=== PATIENT | male | born 2000 | race Caucasian/White ===

== ENCOUNTER 2021-03-06 22:22 | Emergency (ER) | payer OTHER, SELFPAY ==
[2021-03-06 22:23] VITALS: BP 110/80; PULSE 133; RESP 15; TEMP 36.9; O2SAT 92; BMI 27.1
--- NOTE | 2021-03-06 23:19 | CT_ITS ---
STUDY: CT SOFT TISSUE NECK WITH CONTRAST REASON FOR EXAM: Male, 20 years old. ? Peritonsillar abscess RADIATION DOSAGE (If Supplied By Facility): CTDIvol = ( 15.24 ) mGy, DLP = ( 456.90 ) mGycm TECHNIQUE: The patient was scanned in a multi-detector CT scanner. High resolution transaxial imaging was performed following intravenous administration of IV 100mL Isovue-370. Sagittal and coronal images were reconstructed. Individualized dose optimization techniques were used for this CT. COMPARISON: None. FINDINGS: There is bilateral right greater than left tonsillar enlargement with heterogeneous striated enhancement. No peritonsillar abscess formation visualized. Normal bilateral parotid glands. 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 Normal bilateral parapharyngeal spaces. Normal bilateral carotid spaces. Normal bilateral sublingual and submandibular glands and spaces. Normal visualized nasopharynx. Normal retropharyngeal space. Normal perivertebral space. The visualized tongue, tongue base and oropharynx are normal. The visualized cervical lymph nodes (levels I-) are within normal size limits, and maintain normal morphology. There is no demonstrated solid or cystic mass lesion. There is no abnormal contrast enhancement. Normal epiglottis, bilateral vallecula and hypopharynx. The pre-epiglottic and paraglottic adipose spaces are normal. Normal visualized bilateral piriform sinuses, aryepiglottic folds, vocal cords, and arytenoid-cricoid articulations. Normal subglottic trachea. Normal bilateral lobes of the thyroid gland. Normal visualized pulmonary apices. Normal visualized paranasal sinuses. Normal visualized cervical spine. CT/Soft Tissue Neck WITH Contrast IMPRESSION: Enlarged bilateral tonsils with heterogeneous striated enhancement consistent with tonsillitis. Electronically Signed: Jeffry Fiore MD at 0:16 EST Tel , Service support ,
[2021-03-06] MEDS: 0.9% Normal Saline 1,000 ML 999 ML IV (23:40)
[2021-03-06] MEDS: dexAMETHasone 10 MG/ML Vial IV (23:40)
[2021-03-06] MEDS: Ketorolac 30 MG/ML Syringe IV (23:40)
[2021-03-06 23:51] LABS: Absolute Lymphocyte Count 1.99 X10^3/uL (0.83-4.51); Absolute Neutrophil Count 10.4 X10^3/uL (2.0-7.7); Basophil# 0.03 X10^3/uL; Basophil% 0.2 % (0-1); Eosinophil# 0.05 X10^3/uL; Eosinophils% 0.4 % (0-5); Hematocrit 47.5 % (40-54); Lymphocyte # 1.99 X10^3/ul (0.83-4.51); Lymphocyte % 14.3 % (19-41); Mean Corp Hgb Conc 33.7 g/dL (32-36); Mean Corpuscular Hgb 29.4 pg (27.0-32.0); Mean Corpuscular Volume 87.3 fL (80-94); Mean Platelet Vol. 8.5 fl (6.2-12.0); Monocyte# 1.37 X10^3/uL; Monocyte% 9.8 % (0-10); NRBC Flagged by Analyzer 0 % (0-5); Neutrophil # 10.41 X10^3/uL (2.7-7.7); Neutrophil % 74.8 % (47-70); Platelet Count 230 K/mm3 (150-450); RBC Distribution Width CV 12.1 % (11.6-14.6); RBC Distribution Width SD 38.8 fl (35.1-43.9); Red Blood Count 5.44 M/mm3 (4.6-6.2); White Blood Count 13.9 K/mm3 (4.4-11.0)
[2021-03-07 00:06] LABS: Anion Gap 6 (5-15); BUN 10 mg/dL (7-18); Calcium,Total 9.7 mg/dL (8.5-10.1); Chloride 102 mmol/L (98-107); EST Glomerular Filtration Rate 101 mL/min (>60); Est Glom Filt Rate - Afr Amer 122 mL/min (>60); Estimated Creatinine Clearance 140.83 ml/min; Glucose 100 mg/dL (74-106); Potassium 3.8 mmol/L (3.5-5.1); Sodium Level 133 mmol/L (136-145)
--- NOTE | 2021-03-07 00:38 | EDS_ITS ---
HPI History of Present Illness Chief Complaint: Cough Narrative Narrative: Patient is a 20-year-old male who states he got his COVID-vaccine booster 5 days ago. He states after the booster he then began developing fevers up to 104 at home. He states he has had muscle aches and mild cough associated with this. He reports has been taking Tylenol and Motrin with minimal symptom improvement. He states he went and saw his family doctor who did an outpatient COVID test and influenza swab and did a rapid strep test in office. Reportedly the rapid strep test was negative. Patient states he has been noticing some throat and neck pain this evening and with his progressing symptoms presents for evaluation. [facility] Medical History Asthma Incomplete right bundle branch block Pericarditis Home Medications colchicine 0.6 mg tablet 0.6 mg PO BID tab 02/09/21 [History Last Taken Unknown] ibuprofen 200 mg tablet 200 mg PO TID PRN #30 tab 02/09/21 [Rx Last Taken Unknown] amoxicillin-pot clavulanate 1 tab PO BID 10 Days #20 tab 03/07/21 [Rx Last Taken Unknown] prednisone 40 mg PO DAILY 5 Days #10 tab 03/07/21 [Rx Last Taken Unknown] Allergy/AdvReac Type Severity Reaction Status Date / Time azithromycin [From Zithromax] Allergy Rash Verified 03/06/21 22:23 [email or web address] [From Omnicef] Allergy Hives Verified 03/06/21 22:23 Family History (Updated 02/09/21 @ 14:19 by Binta Lambert) Mother Thyroid disorder Grandmother Heart disease Hypertension COPD (chronic obstructive pulmonary disease) Father Heart disease Hypertension Grandmother No problems noted. Grandfather Hypertension Grandfather Hypertension Social History Smoking Status: Never smoker alcohol intake: never ROS ROS ED Constitutional Constitutional ED: Reports chills and fever(s) ENT ENT ED: Reports sore throat Cardiovascular Cardiovascular: Denies chest pain or palpitations Respiratory/Chest Respiratory/Chest: Reports cough; Denies dyspnea Gastrointestinal Gastrointestinal: Denies abdominal pain, diarrhea, nausea or vomiting Genitourinary Genitourinary ED: Denies dysuria Musculoskeletal Musculoskeletal: Reports myalgias Integumentary Denies rash Neurologic Neurologic: Denies headache(s) Hematologic/Lymphatic Hematologic/Lymphatic: Denies easy bleeding or easy bruising EXAM Physical Exam Const Vital Signs: 03/06/21 22:23 03/06/21 23:43 Temperature 98.5 F Temperature Source Temporal Pulse Rate 133 H Respiratory Rate 15 Respiratory Effort Normal Respiratory Depth Normal Respiratory Pattern Normal Blood Pressure 110/80 Blood Pressure Mean 90 Pulse Ox 92 Oxygen Delivery Method Room Air Positive well nourished and well developed General Appearance ED: well developed HEENT Reports moist mucous membranes HEENT Narrative: There is bilateral enlargement of the tonsils right greater than left. There is loss of the tonsillar crypt on the right. Patient does report mild trismus. However there is no change in voice or difficulty with secretions. No exudates or hard palate petechiae noted. No airway edema or compromise. Eyes PERRL and EOMs intact bilaterally Neck supple Neck Narrative: Positive anterior cervical lymphadenopathy. No meningeal signs Resp normal respiratory effort and clear to auscultation bilaterally Cardio regular rhythm Rate: tachycardic GI normal to inspection, nondistended, normoactive bowel sounds, non-tender, non- distended and no masses Auscultation: normoactive bowel sounds Palpation: soft Extremity normal to inspection Neuro oriented x3 and CN's II-XII intact bilaterally Sensorium / Orientation: alert Motor Exam: strength 5/5 throughout Psych mental status grossly normal Skin no rashes or lesions noted MDM MDM MDM Narrative Medical decision making narrative: Patient presented to the ER afebrile but was tachycardic. He presented with constellation of symptoms that could be COVID but as he has had his recent booster vaccination is most likely reaction to the booster. However as he now has increased neck/throat pain and he has bilateral tonsil hypertrophy right greater than left with loss of crypt there is concern he is developing a tonsillar abscess which could lead to the persistent fever and his worsening neck pain. He is tachycardic but he is in no acute respiratory distress and his lungs are clear and he has no chest pain at rest or with inspiration and therefore do not feel there is a need for a CT of his chest. Basic blood work was obtained and does show elevation to his white count but otherwise no clinically significant finding. The CT of his neck did show tonsillar perjury feet right greater than left without obvious abscess formation and otherwise no other neck. Patient was given IV fluids Toradol and Decadron on reevaluation is resting comfortably and remains in no acute respiratory distress. Therefore at this time I do feel patient has 2 mechanisms causing his pain/symptoms. 1 is the vaccination reaction but it has been worsened or exacerbated by the patient's tonsillitis. At this time he does not have an abscess on CAT scan and he is in no respiratory distress so there is no need for incision and drainage or admission. Patient will placed on antibiotics secondary to his report of fever leukocytosis and CT scan results but as he has no respiratory distress or chest discomfort there is no need for further work-up or admission and he can be discharged home Lab Data Attestation: I reviewed the patient's lab results. Labs: Laboratory Results - last 24 hr 03/06/21 03/06/21 23:42 23:42 WBC 13.9 H RBC 5.44 Hgb 16.0 Hct 47.5 MCV 87.3 MCH 29.4 MCHC 33.7 RDW Std Deviation 38.8 RDW Coeff of Thien 12.1 Plt Count 230 MPV 8.5 Immature Gran % (Auto) 0.500 Neut % (Auto) 74.8 H Lymph % (Auto) 14.3 L [place] % (Auto) 9.8 Eos % (Auto) 0.4 Baso % (Auto) 0.2 Absolute Neuts (auto) 10.4 H Absolute Lymphs (auto) 1.99 Nucleated RBC % 0 Sodium 133 L Potassium 3.8 Chloride 102 Carbon Dioxide 25.0 Anion Gap 6 BUN 10 Creatinine 1.00 Estim Creat Clear Calc 140.83 Est GFR (MDRD) Af Amer 122 Est GFR (MDRD) Non-Af 101 BUN/Creatinine Ratio 10.0 Glucose 100 Calcium 9.7 Radiography Diagnostic Testing: Clinical Impression(s) from Imaging Studies Soft Tissue Neck CT 03/06/21 23:19 IMPRESSION: Enlarged bilateral tonsils with heterogeneous striated enhancement consistent with tonsillitis. Electronically Signed: Jeffry Fiore MD at 0:16 EST Tel , Service support , Discharge Plan Triage Chief Complaint: Cough ED Provider: Angelo Andrea Dx/Rx/DC Orders Clinical Impression: Acute tonsillitis, Adverse effect of COVID-19 vaccine Instructions: ED Tonsillitis Prescriptions: New prednisone 20 mg tablet 40 mg PO DAILY 5 Days Qty: 10 RF: 0 amoxicillin-pot clavulanate 875-125 mg tablet 1 tab PO BID 10 Days Qty: 20 RF: 0 No Action colchicine 0.6 mg tablet 0.6 mg PO BID RF: 0 ibuprofen [Motrin IB] 200 mg tablet 200 mg PO TID PRN (Reason: pain) Qty: 30 RF: 0 Primary Care Provider: Xiomara Fernando Referrals: Xiomara Fernando MD [Primary Care Provider] - Disposition Disposition: Home, Self Care
[2021-03-07] MEDS: Amox/Clavulanate 875 MG Tablet PO (00:47)
[2021-03-07 00:52] LABS: Lactic Acid 0.9 mmol/L (0.4-1.9)
[2021-03-07 00:56] VITALS: RESP 16
== END 2021-03-07 00:57 | disposition home or self-care (01) ==
PROVIDERS: Emergency Provider Emergency Medicine; PCP Pediatrics; Visit Provider Emergency Medicine
DX: J03.90 Acute tonsillitis, unspecified (principal); D72.829 Elevated white blood cell count, unspecified; R50.9 Fever, unspecified; T50.B95A Adverse effect of other viral vaccines, initial encounter
CPT/HCPCS: 70491; 80048; 83605; 85025; 96374; 96375; 99284; J7030; Q9967; A4216

== ENCOUNTER → 2021-09-04 | Outpatient (CLI) | payer OTHER, SELFPAY ==
--- NOTE | 2021-09-04 | TONS_PTH ---
PATIENT: WILLARD YATES LOC: [facility] U#:[id number] AGE/SX: 21/M ROOM: RE09/04/[address]: Dr. Tony Underwood MD : [id number] BED: DIS: 09/04/2021 SPEC #: [id number] RECD: 09/04/21 14:54 STATUS: [employer] #: [id number] JOSÉ: 09/04/21 00:[address]: Tony Underwood DEPT: SURGICAL PATHOLOGY RECD BY: Vlad Richmond ENTERED: 09/05/21 09:32 SP TYPE: TONSILS OTHR DR: Dr. Xiomara Fernando MD [facility] Tissues: Tonsil, NOS Procedures: Surgery Specimen Level III HEADER OPERATION: Tonsillectomy PRE-OP DIAGNOSIS: Chronic tonsillitis, hypertrophy of tonsils TISSUE SUBMITTED: Tonsils (right pinned) MICROSCOPIC DIAGNOSIS Bilateral tonsils, tonsillectomy: Reactive lymphoid hyperplasia, consistent with chronic tonsillitis. Focal actinomyces colonization. PADMINI:norris 09/06/2021 MICROSCOPIC DESCRIPTION Slides are reviewed. GROSS DESCRIPTION Received is one container labeled with the patient's name and designated tonsils - pin on right are two tonsils that in aggregate weigh 14.3 gm. The right tonsil has a pin on it and measures 3.5 x 2 x 2 cm. The left tonsil measures 4 x 2.5 x 2 cm. Both tonsils are similar in appearance. The external surfaces are pink-nickerson, smooth, glistening and somewhat lobulated. Focally they are hemorrhagic, granular and bear cautery artifact. Serial cross sections through the tonsils reveal normal tonsillar architecture. Sections are submitted in two cassettes as follows: 1 - right tonsil, 2 - left tonsil. / PADMINI:norris 09/05/2021 TC:3 CPT: 98691 x2
== END | disposition home or self-care (01) ==
LOC: LABSPEC 15:17
PROVIDERS: PCP Pediatrics; Visit Provider Otolaryngology
DX: J35.01 Chronic tonsillitis (principal)
CPT/HCPCS: 88304